=== PATIENT | female | born 1965 ===

== ENCOUNTER 2020-05-06 09:45 | Inpatient (IN) | payer OTHER ==
[~2020-05-06] VITALS: Ht 165.1 cm; Wt 58.1 kg
[2020-05-06] MEDS ORDERED: LIPITO PO (13:08)
[2020-05-12] MEDS ORDERED: ATORVASTATIN CA20 MG (07:57)
[2020-05-13] MEDS ORDERED: PERCOCET 5-3251 EACH PO (07:17)
== END 2020-05-13 09:13 | disposition home or self-care (01) | DRG 743 ==
LOC: OB/GYN 05-12 06:00 → O/R 05-12 06:00 → SURH 05-12 07:00 → OB/GYN 05-12 13:02
PROVIDERS: ADMIT Obstetrics & Gynecology Gynecology; ATTEND Obstetrics & Gynecology Gynecology
PROC: 0UB77ZZ Excision of Bilateral Fallopian Tubes, Via Natural or Artificial Opening (ICD-10-PCS; 2020-05-12)
PROC: 0UT9FZZ Resection of Uterus, Via Natural or Artificial Opening With Percutaneous Endoscopic Assistance (ICD-10-PCS; principal; 2020-05-12 07:00)
DX: N72 Inflammatory disease of cervix uteri (principal); N80.0 Endometriosis of uterus; N83.8 Other noninflammatory disorders of ovary, fallopian tube and broad ligament